=== PATIENT | female | born 2000 | race Caucasian/White ===

== ENCOUNTER 2021-12-06 23:27 | Emergency (ER) | payer BC ==
[2021-12-07 00:25] LABS: CORONAVIRUS COVID-19 NAA NEGATIVE (NEGATIVE)
[2021-12-07] MEDS ORDERED: Ondansetron 4 MG Tab.DIS PO ONE (01:31)
[2021-12-07] MEDS ORDERED: Sodium Chloride 0.9% 1,000 ML IV ONE ×2 (02:06→05:26)
== END 2021-12-07 07:00 | disposition home or self-care (01) ==
LOC: JD.ED 23:27
DX: A08.4 Viral intestinal infection, unspecified (principal); I95.1 Orthostatic hypotension; Z20.822 Contact with and (suspected) exposure to COVID-19
CPT/HCPCS: 0240U; 36415; 80053; 85025; 99284; A9270; J7030; 99283